=== PATIENT | male | born 1945 | race Caucasian/White ===

== ENCOUNTER 2020-09-17 11:34 | Day surgery (SDC) | payer OTHER ==
[~2020-09-17] VITALS: Ht 175.3 cm; Wt 86.6 kg
[2020-09-17] VITALS (8 sets, daily range): BP systolic 119–143; BP diastolic 58–88
[2020-09-17] MEDS ORDERED: normal saline 1000ml 1,000 ML IV SCH (12:05)
[2020-09-17] MEDS ORDERED: cefazolin/dext.iso 2gm/100ml 100 ML IV ONE (12:05)
[2020-09-17] MEDS ORDERED: VANCOMYCIN 1,500MG inj. 1,500 MG in normal saline 500ml IV soln 300 ML IV ONE (12:05)
[2020-09-17 12:29] LABS: BASOPHILS % (AUTO) 0.5 % (0-1); EOSINOPHILS % (AUTO) 0.4 % (0-6); HEMATOCRIT 50.4 % (42.0-52.0); HEMOGLOBIN 16.9 g/dl (14.0-17.9); LYMPHOCYTES # (AUTO) 1.5 X10'3 (1.1-4.8); LYMPHOCYTES % (AUTO) 20.5 % (21-51); MEAN CORPUSCULAR HEMOGLOBIN 33.9 PG (27.0-31.0); MEAN CORPUSCULAR HGB CONC 33.5 g/dL (33.0-36.5); MEAN CORPUSCULAR VOLUME 101.1 FL (78-98); MEAN PLATELET VOLUME 9.9 FL (7.4-10.4); MONOCYTES # (AUTO) 0.8 X10'3 (0-0.9); MONOCYTES % (AUTO) 10.9 % (2-12); NEUTROPHILS # (AUTO) 4.9 X10'3 (1.8-7.7); NEUTROPHILS % (AUTO) 67.7 % (42-75); PLATELET COUNT 156 X10'3 (140-440); RED BLOOD COUNT 4.99 X10'6 (4.70-6.10); RED CELL DISTRIBUTION WIDTH 13.1 % (11.5-14.5); WHITE BLOOD COUNT 7.2 X10'3 (4.5-11.0)
[2020-09-17 12:40] LABS: ANION GAP 9 (8-16); BLOOD UREA NITROGEN 21 MG/DL (7-18); BUN/CREATININE RATIO 29.6 (5.4-32.0); CALCIUM 8.8 MG/DL (8.5-10.1); CHLORIDE 103 MMOL/L (99-107); CREATININE 0.71 MG/DL (0.60-1.10); GLUCOSE 114 MG/DL (70-104); MAGNESIUM 1.9 MG/DL (1.5-2.4); POTASSIUM 4.1 MMOL/L (3.5-5.1); SODIUM 139 MMOL/L (135-145); TOTAL CARBON DIOXIDE 26.8 MMOL/L (24-32); eGFR > 90 ML/MIN
[2020-09-17] MEDS ORDERED: omega-3 PO (12:51)
[2020-09-17] MEDS ORDERED: CHOL100046 PO (12:51)
[2020-09-17] MEDS ORDERED: LOSA50TA3 PO (12:51)
[2020-09-17] MEDS ORDERED: METF750T PO (12:51)
[2020-09-17] MEDS ORDERED: TIOT4MIS3 (12:51)
[2020-09-17] MEDS ORDERED: ALBU8.5H8 INH (12:51)
[2020-09-17] MEDS ORDERED: OCCUVITE (12:51)
[2020-09-17] MEDS ORDERED: ATOR10TA87 PO (12:51)
[2020-09-17] MEDS ORDERED: DABI150C PO (12:51)
[2020-09-17] MEDS ORDERED: EMPA25TA PO (12:51)
[2020-09-17] MEDS ORDERED: VITAMIN B12 PO (12:51)
[2020-09-17] MEDS ORDERED: METO50TA7 PO (12:51)
[2020-09-17] MEDS ORDERED: LIDOCAINE 2% w/EPI 1:100:000 30mL injection MDV**cath lab 1 only ONE (13:46)
[2020-09-17] MEDS ORDERED: midazolam 1 mg/ML 2ml injection ONE ×2 (13:47→14:30)
[2020-09-17] MEDS ORDERED: fentaNYL/PF 50MCG/1 ML 2ML syringe ONE (13:47)
[2020-09-17] MEDS ORDERED: vancomycin 1,000mg inj ONE (13:52)
== END 2020-09-17 18:00 | disposition home or self-care (01) ==
LOC: SSTAY O 11:34
PROVIDERS: ATTEND Internal Medicine Cardiovascular Disease
DX: I49.5 Sick sinus syndrome (principal); I48.0 Paroxysmal atrial fibrillation; I44.0 Atrioventricular block, first degree; I45.10 Unspecified right bundle-branch block; I10 Essential (primary) hypertension; E78.5 Hyperlipidemia, unspecified; E11.9 Type 2 diabetes mellitus without complications; J44.9 Chronic obstructive pulmonary disease, unspecified; G47.30 Sleep apnea, unspecified; F17.210 Nicotine dependence, cigarettes, uncomplicated; Z79.84 Long term (current) use of oral hypoglycemic drugs; Z79.899 Other long term (current) drug therapy; Z98.890 Other specified postprocedural states; Z98.49 Cataract extraction status, unspecified eye; Z72.89 Other problems related to lifestyle; Z88.8 Allergy status to other drugs, medicaments and biological substances
CPT/HCPCS: 33208; 36415; 71045; 80048; 82948; 83735; 85025; 85610; 93005; 99152; 99153; C1785; C1894; C1898; J2250; J3010; J3370; A4565; A4620; A6258